=== PATIENT | female | born 1985 | race Caucasian/White ===

== ENCOUNTER 2019-06-06 06:50 | Inpatient (IN) | payer OTHER, SELFPAY ==
[2019-06-06] VITALS (59 sets, daily range): BP systolic 86–160; BP diastolic 46–88; PULSE 52–171; TEMP 36.2–37.1; O2SAT 82–100; BMI 43.1
[2019-06-06] MEDS: Lactated Ringers 1,000 ML 50 ML IV (07:50)
[2019-06-06 08:03] LABS: Absolute Lymphocyte Count 1.96 X10^3/uL (0.83-4.51); Absolute Neutrophil Count 9.6 X10^3/uL (2.0-7.7); Basophil# 0.03 X10^3/uL; Basophil% 0.2 % (0-1); Eosinophil# 0.02 X10^3/uL; Eosinophils% 0.2 % (0-5); Hematocrit 35.7 % (37-47); Hemoglobin 11.5 g/dL (12.0-15.0); Lymphocyte # 1.96 X10^3/ul (4.0); Lymphocyte % 15.5 % (19-41); Mean Corp Hgb Conc 32.2 g/dL (32-36); Mean Corpuscular Hgb 29.7 pg (27.0-32.0); Mean Corpuscular Volume 92.2 fL (81-99); Mean Platelet Vol. 10.6 fl (6.2-12.0); Monocyte# 1.02 X10^3/uL; Monocyte% 8.1 % (0-10); NRBC Flagged by Analyzer 0 % (0-5); Neutrophil # 9.56 X10^3/uL (2.7-7.7); Neutrophil % 75.4 % (47-70); Platelet Count 311 K/mm3 (150-450); RBC Distribution Width CV 15.1 % (11.6-14.6); RBC Distribution Width SD 50.6 fl (35.1-43.9); Red Blood Count 3.87 M/mm3 (4.2-5.4); White Blood Count 12.7 K/mm3 (4.4-11.0)
[2019-06-06] MEDS: Oxytocin 30 units/NS 500 ml 30 UNITS/500 ML IV.SOLN IV (08:55)
--- NOTE | 2019-06-06 09:10 | PCM.PN.BLA ---
Progress Note Patient is a at 40.4 weeks gestation for induction of labor. Patient resting well with in the room. / /-2. A.R.O.M by Dr. Newman after discussion with patient and consent given. IUPC placed to have accurate reading of contractions. Pitocin started. Category 1 tracing. No contractions noted. A/P Continue IV pitocin and titrate as needed PCN 3 million units every 4 hours until delivery Continue to monitor closely Epidural when patient desires Anticipate A+ Rubella -Immune HB- GBS+- 1st dose of IV PCN given at 0945 STROKE Vital Signs/Narrative: Vital Signs Temp Pulse BP 06/06/19 08:59 81 126/75 H 06/06/19 08:58 98.4 F
[2019-06-06] MEDS: Lactated Ringers 500 ML 999 ML IV ×2 (11:50→13:54)
[2019-06-06] MEDS: fentaNYL-bupivacaine (epidural) 100 ML BAG EPIDURAL ×3 (12:25→21:47)
[2019-06-06] MEDS: Mag Hydrox/Al Hydrox/Simeth 30 ML UDC PO ×2 (13:17→18:09)
[2019-06-06] MEDS: Amnioinfusion- 0.9% NS 1,000 ML IV.SOLN. INTRA-UTER (14:42)
[2019-06-06] MEDS: Lactated Ringers 1,000 ML 200 ML IV (17:38)
--- NOTE | 2019-06-06 18:12 | PCM.PN.BLA ---
Progress Note Patient resting comfortably with epidural. No pain at this time. Pitocin restarted at 2mu/min after being turned off for minimal variability and variables. FHT category 1 at this time. Contractions are occasional. Assessed patient at bedside. CE completed and was /-2. Moderate amount of bloody show. Will continue to increase IV pitocin as long as tolerating. Discussed plan of care and Dr. Newman agrees. STROKE Vital Signs/Narrative: Vital Signs Temp Pulse BP 06/06/19 17:10 109 H 109/69 06/06/19 17:09 98.2 F 06/06/19 16:01 120 H 118/71 06/06/19 15:59 97.9 F 06/06/19 14:56 97.5 F L 83 137/58 H
--- NOTE | 2019-06-06 21:30 | HP.PCM_ITS ---
History Date of Admission: 06/06/19 Final MIKO: 06/02/19 Final MIKO Source: US <20 weeks Gestational age: 40 Weeks and 4 Days History of this : This is a 34 year-old, avid 2 para 1 at 40-4/7 weeks gestation presents for induction of labor due to maternal discomfort and BMI greater than 40. Eyes any vaginal bleeding or leaking of fluid. She is had good movement. has been uncomplicated to date. Annie was complicated by an abnormal 1 hour GTT but her 3-hour test was normal. Has had antepartum anemia and she is group B strep positive. Allergies No Known Allergies Allergy (Verified 06/06/19 07:34) Home Medications: Home Medications Ferrous Sulfate [Iron] 325 mg PO DAILY 06/06/19 Vits [Prenatabs FA ] 1 tab PO DAILY 06/06/19 Smoking Status: Never smoker Alcohol: None Number of Fetus(es): 1 NST - FHR Rate Baby A Baseline: normal Variability:: Moderate Accelerations:: 15 x 15 Decelerations:: None NST Reactive:: Appropriate for gestational age FHR Category:: Category I Uterine Activity:: no regular ctxs History Past Pregnancies: Past Pregnancies Delivery Date Name GA/ Weeks Outcome Route Wt Infant Sex Labor Length Anesthesia Delivery Location Provider FOB Expected Delivery Method: Spontaneous Vaginal Review of Systems Constitutional: Denies: Chills, Fever Eyes: Denies: Blurred vision Cardiovascular: Denies: Chest Pain Respiratory: Denies: Cough Neurological: Denies: Blurred vision, Change in Speech, Slurred speech, Confusion Hematologic/ Lymphatic: Denies: Anemia Physical Exam Vitals: Vital Signs Temp Pulse BP Pulse Ox 98.4 F 84 124/71 H 100 06/06/19 21:00 06/06/19 21:00 06/06/19 21:00 06/06/19 21:00 General: Alert, Cooperative, No apparent distress Cardiovascular: Regular Rhythm Lungs: Normal air movement Abdomen: Soft, Non Tender, Non-Distended, Gravid Extremities:: No edema Neurological: Cranial nerves II-XII grossly intact, Deep Tendon Reflexes 2+/4 and Symmetrical INVENTORY COORDINATOR: Normal external genitalia Estimated gestational size: Appropriate for gestational size Presentation: Cephalic Cervix Dilation (cm): 2 Station: -3 Effacement (%): 60 Assessment/Plan This is a 34 year-old, 2 para 1 at 40-4/7 weeks gestation for induction of labor. Risk benefits and alternatives to induction been discussed with patient, questions were answered to her satisfaction and consent was signed. We will proceed with Pitocin and artificial rupture membranes for induction of labor. Group B strep prophylaxis is initiated. May have nitrous oxide, IV meds or epidural as needed for pain control. Estimated weight is less than 4500 g clinically and pelvis is clinically adequate to expect vaginal delivery.
[2019-06-06] MEDS: Oxytocin 30 units/NS 500 ml 30 UNITS/500 ML IV.SOLN 334 UNITS IV (22:05)
--- NOTE | 2019-06-06 22:36 | PCM.OPRPT ---
Vaginal Delivery Maternal Presentation: Medically Indicated Induction Method of Induction: Pitocin, Amniotomy Medical Reason for Induction: - - BMI >40 Amniotic Membrane Rupture Type: Artificial Amniotic Fluid Description: Clear Final MIKO: 06/02/19 Final MIKO Source: US <20 weeks Gestational age: 40 Weeks and 4 Days Date of Procedure: 06/06/19 Pre-Operative Diagnosis: Term gestation Post-Operative Diagnosis: Same, live female infant Surgery/ Procedure Performed: Spontaneous Vaginal Delivery Type of Anesthesia: Epidural, Local with 1% lidocaine - 20cc Description of Procedure: Patient completely dilated and began pushing well with contractions. of live female over intact perinium. Head delivered without difficulty. Nuchal cord X1 easily reduced. Delivery of anterior shoulder with gentle downward traction followed by rest of infant body. vigorous and placed on maternal abdomen skin to skin. Delayed cord clamping and FOB cut cord. Placenta was spontaneously delivered without difficulty and intact. First-degree laceration repaired with 3-O rapide. Vaginal sweep performed by myself. Dr. Newman present for delivery. Presentation: Vertex, DYANA Placental Delivery Description: Spontaneous Placenta Disposition: [facility] Cord Vessel Description: 3 Vessels Cord Entanglement: Around neck x 1, loose - Around body Infant A gender: Female (1 minute): 8 (5 minute): 9 Episiotomy Description: None Laceration: 1st degree Medications given after delivery: IV Pitocin
[2019-06-07] VITALS (21 sets, daily range): BP systolic 113–129; BP diastolic 61–76; PULSE 71–156; RESP 16–18; TEMP 36.3–37.2; O2SAT 82–99
--- NOTE | 2019-06-07 02:28 | NURSING ---
bedside report received from chart RN. this rn to assume care of pt at this time.
[2019-06-07] MEDS: Ibuprofen 600 MG Tablet PO ×3 (04:44→19:20)
--- NOTE | 2019-06-07 06:42 | PCM.PN.OB ---
Subjective: Patient seen at bedside. Reports feeling well. Pain controlled with Motrin PO. without difficulty. Voiding and passing flatus. Ordering breakfast tray. - Physical Exam Vitals/I&O's: Vital Signs Temp Pulse Resp BP Pulse Ox 98.9 F 75 16 118/64 96 06/07/19 04:48 06/07/19 04:48 06/07/19 04:48 06/07/19 04:48 06/07/19 00:31 Oxygen Delivery Method Room Air Weight: 292 lb Body Mass Index (BMI) 43.1 Intake and Output for Last 24 Hours 06/05/19 06/06/19 06/07/19 23:59 23:59 23:59 Intake Total 4757.97 / 4757.97 333 / 333 Output Total 500 / 500 1250 / 1250 Balance 4257.97 / 4257.97 -917 / -917 General: Alert, No apparent distress Lungs: Normal air movement Abdomen: Soft, Passing Flatus Laboratory Results 06/06/19 07:50: WBC 12.7 H, RBC 3.87 L, Hgb 11.5 L, Hct 35.7 L, MCV 92.2, MCH 29.7, MCHC 32.2, RDW Std Deviation 50.6 H, RDW Coeff of Laura 15.1 H, Plt Count 311, MPV 10.6, Immature Gran % (Auto) 0.600, Neut % (Auto) 75.4 H, Lymph % (Auto) 15.5 L, [place] % (Auto) 8.1, Eos % (Auto) 0.2, Baso % (Auto) 0.2, Absolute Neuts (auto) 9.6 H, Absolute Lymphs (auto) 1.96, Nucleated RBC % 0 06/06/19 07:50: Blood Type A POSITIVE, Antibody Screen NEGATIVE Current Medications Acetaminophen (Tylenol) 1,000 mg PO Q8H PRN PRN PRN Reason: Pain Score 1-3/10 Bisacodyl (Dulcolax) 10 mg RECTAL UD PRN PRN Reason: If no BM Dibucaine (Dibucaine) 1 applic TOPICAL TID PRN PRN; Protocol PRN Reason: Discomfort Hydrocortisone (Hytone) 1 applic TOPICAL TID PRN PRN; Protocol PRN Reason: Discomfort Ibuprofen (Motrin) 600 mg PO Q6H PRN PRN PRN Reason: Pain Score 1-05/30 Last Admin: 06/07/19 04:44 Dose: 600 mg Documented by: Methylergonovine Maleate (Methergine) 0.2 mg IM X1 PRN PRN Reason: Excess bleeding/uterine atony Ondansetron HCl (Zofran) 4 mg IV Q4H PRN PRN PRN Reason: Nausea Senna/Docusate Sodium (Senokot-S, Mary-Colace) 1 - 2 tablet PO DAILY PRN PRN PRN Reason: Constipation Simethicone (Mylicon) 80 mg PO PCHS PRN PRN Reason: Indigestion/Stomach pain Sodium Chloride () 5 - 15 ml IV UD PRN PRN Reason: SALINE FLUSH Medical Necessity - Tobacco Use Smoking Status: Never smoker Assessment/Plan PP Day 1 Routine care Pain management
[2019-06-07] MEDS: Acetaminophen 500 MG Tablet 1000 MG PO ×2 (07:21→16:21)
[2019-06-08] MEDS: Acetaminophen 500 MG Tablet 1000 MG PO (00:45)
[2019-06-08 01:13] VITALS: TEMP 36.5
[2019-06-08 01:14] VITALS: BP 123/83; PULSE 68
[2019-06-08 01:20] VITALS: BP 123/83; PULSE 68; RESP 18; TEMP 36.5
[2019-06-08] MEDS: Ibuprofen 600 MG Tablet PO ×2 (02:35→08:52)
[2019-06-08 07:43] VITALS: TEMP 36.7
[2019-06-08 07:44] VITALS: BP 115/62; PULSE 78; RESP 16; TEMP 36.7; O2SAT 99
--- NOTE | 2019-06-08 08:20 | DCINST_ITS ---
Discharge Diet: No Restrictions Discharge Activity: Return to Normal Activity, May not drive while taking narcotic pain medications., May Shower May resume sexual activity in: 4-6 weeks Additional Activity Instructions:: Nothing in the vagina for 4-6 weeks. You may return to work/school in 6 weeks. Call your doctor if your incision/area has: Continuous Slow Oozing, Sudden Increased Bleeding, Increased Pain/ Swelling, Increased Redness, Foul Smelling Discharge Additional Instructions: If you experience any of the following, contact your healthcare provider. * Bleeding that soaks a pad every hour for 2 hours * Fever 100.4 or higher * Unrelieved incision or abdominal pain * Swelling, redness, discharge or bleeding from your incision or episiotomy site * Your incision begins to separate * Problems urinating (including inability to urinate or burning while urinating). * Visual changes * Severe headache * Flu-like symptoms * Pain or redness in one of both of your breasts * Pain, warmth, tenderness or swelling in your legs, especially the calf area * Frequent nausea and vomiting * Symptoms of depression or anxiety If you experience any of the following, call 911 or go to the nearest Emergency Room. * Chest pain * Problems breathing * Seizure activity * Partial or complete paralysis of a body part, slurred speech, weakness or drooping of the face, or a sudden inability to walk or hold your balance Allergies/Adverse Reactions: Allergies No Known Allergies Allergy (Verified 06/06/19 07:34) Medications to take at Discharge Ferrous Sulfate [Iron] 325 mg PO DAILY 06/06/19 Vits [Prenatabs FA ] 1 tab PO DAILY 06/06/19 Please Follow Up With: Leidy Newman MD - [phone] When: Call to make an appointment with your doctor in 6 weeks. If you had elevated Blood Pressure or 4th degree laceration you will need to be seen in 2 weeks. Primary Care Physician: Valeria Pierre MD [Primary Care Provider] - Test Results: Test results from this visit will be discussed in further detail at your follow- up appointment, if applicable.
--- NOTE | 2019-06-08 08:21 | PCM.PN.OB ---
Subjective: pain well controlled, average lochia, no c/o - Physical Exam Vitals/I&O's: Vital Signs Temp Pulse Resp BP Pulse Ox 98.0 F 78 16 115/62 99 06/08/19 07:44 06/08/19 07:44 06/08/19 07:44 06/08/19 07:44 06/08/19 07:44 Oxygen Delivery Method Room Air Weight: 132.449 kg Body Mass Index (BMI) 43.1 Intake and Output for Last 24 Hours 06/06/19 06/07/19 06/08/19 23:59 23:59 23:59 Intake Total 4757.97 / 4757.97 333 / 333 Output Total 500 / 500 1250 / 1250 Balance 4257.97 / 4257.97 -917 / -917 General: Alert, Cooperative, No apparent distress Current Medications Acetaminophen (Tylenol) 1,000 mg PO Q8H PRN PRN PRN Reason: Pain Score 1-3/10 Last Admin: 06/08/19 00:45 Dose: 1,000 mg Documented by: Bisacodyl (Dulcolax) 10 mg RECTAL UD PRN PRN Reason: If no BM Dibucaine (Dibucaine) 1 applic TOPICAL TID PRN PRN; Protocol PRN Reason: Discomfort Hydrocortisone (Hytone) 1 applic TOPICAL TID PRN PRN; Protocol PRN Reason: Discomfort Ibuprofen (Motrin) 600 mg PO Q6H PRN PRN PRN Reason: Pain Score 1-3/10 Last Admin: 06/08/19 02:35 Dose: 600 mg Documented by: Methylergonovine Maleate (Methergine) 0.2 mg IM X1 PRN PRN Reason: Excess bleeding/uterine atony Ondansetron HCl (Zofran) 4 mg IV Q4H PRN PRN PRN Reason: Nausea Senna/Docusate Sodium (Senokot-S, Mary-Colace) 1 - 2 tablet PO DAILY PRN PRN PRN Reason: Constipation Simethicone (Mylicon) 80 mg PO PCHS PRN PRN Reason: Indigestion/Stomach pain Last Admin: 06/07/19 09:35 Dose: 80 mg Documented by: Sodium Chloride () 5 - 15 ml IV UD PRN PRN Reason: SALINE FLUSH Medical Necessity - Tobacco Use Smoking Status: Never smoker Assessment/Plan PPD#2 s/p doing well and doing well d/c home
== END 2019-06-08 09:10 | disposition home or self-care (01) | DRG 807 ==
PROVIDERS: Admitting Provider Obstetrics & Gynecology; PCP Family Medicine; Referring Provider Obstetrics & Gynecology; Visit Provider Obstetrics & Gynecology
DX: O26.893 Other specified pregnancy related conditions, third trimester (principal); Z37.0 Single live birth; O69.81X0 Labor and delivery complicated by cord around neck, without compression, not applicable or unspecified; O69.82X0 Labor and delivery complicated by other cord entanglement, without compression, not applicable or unspecified; O70.0 First degree perineal laceration during delivery; O99.02 Anemia complicating childbirth; D64.9 Anemia, unspecified; O99.824 Streptococcus B carrier state complicating childbirth; Z3A.40 40 weeks gestation of pregnancy
CPT/HCPCS: 59025; 59050; 85025; 86850; 86900; 86901; 99218; J7030; J7120; G0378

== ENCOUNTER 2022-01-06 16:45 | Outpatient (CLI) | payer OTHER, SELFPAY ==
[2022-01-06 13:42] VITALS: BP 124/87; PULSE 109
[2022-01-06 13:43] VITALS: PULSE 106; TEMP 37.3; O2SAT 97
--- NOTE | 2022-01-06 18:27 | NURSING ---
Late entry due to patient care: Patient was sent in from office for decreased movement. Patient was to be induced, but due to staffing ratios, we did continuous monitoring. During that time, NST was reactive. Patient desired to go home. Dr. Newman agreeable. She has follow-up appointment scheduled for tomorrow. A kick count sheet was given to patient. Patient encouraged to call OB and come to hospital for SROM, decreased movement, vaginal bleeding or regular contractions. Patient verbalized understanding. Patient scheduled for induction on 01/08/22 at 7am.
--- NOTE | 2022-01-10 13:02 | OB.TRI.NOTE ---
HPI - General General Date of Admission: 01/06/22 Date of Service: 01/06/22 Chief Complaint: 40 weeks HPI Narrative TUAN SCHROEDER, is a 36 F who preseted from office for decreased movement w/ a decel. Maternal Data Information MIKO Calculator Estimated Delivery Date Method Current WG Current Estimate 01/06/22 Manual 40w 4d PFSH PFSH Medical History (Updated 01/08/22 @ 08:[address] Jessie Meyer MD) Family history of hearing loss at age younger than 7 years Home Medications vits,calcium no.78-iron fumarate-folic acid 29 mg-1 mg tablet 1 tab PO DAILY 06/06/19 [History Last Taken 1 Day Ago ~01/06/22] Allergy/AdvReac Type Severity Reaction Status Date / Time No Known Allergies Allergy Verified 01/07/22 18:59 Family History (Updated 01/07/22 @ 22:20 by Justine Lubin) Mother Hypertension Father Diabetes Surgical History (Updated 01/07/22 @ 22:20 by Justine Lubin) H/O breast biopsy Hx of tonsillectomy Social History Smoking Status: Never smoker History Elective abortions Hx Para 2 Spontaneous abortions Hx # Term Pregnancies Ectopic pregnancies Hx # Pregnancies Multiple births # of living children NST FHR Rate Baby A Baseline: 130 Variability:: Moderate Accelerations:: 15 x 15 Decelerations:: Variable (but category 1 20 min before d/c) NST Reactive:: Yes FHR Category:: Category I Uterine Activity:: irreg ctxs Assessment & Plan (1) 40 weeks gestation of : PLAN: Plan 36 YOF here for induction. However, after prolonged monitoring FHTs are reassuring. Acuity of unit has prohibited us from starting induction. Patient feels good FM. D/c home and schedule induction in 24-48 hrs w/ follow up in office tomorrow for NST. Patient is comfortable w/ plan
== END 2022-01-06 23:59 | disposition home or self-care (01) ==
PROVIDERS: PCP Nurse Practitioner Family; Referring Provider Advanced Practice Midwife; Visit Provider Advanced Practice Midwife
DX: O36.8130 Decreased fetal movements, third trimester, not applicable or unspecified (principal); O36.8330 Maternal care for abnormalities of the fetal heart rate or rhythm, third trimester, not applicable or unspecified; Z3A.40 40 weeks gestation of pregnancy
CPT/HCPCS: 59025; 59050

== ENCOUNTER 2022-01-07 17:30 | Inpatient (IN) | payer OTHER, SELFPAY ==
[2022-01-07] VITALS (24 sets, daily range): BP systolic 115–150; BP diastolic 58–94; PULSE 81–97; TEMP 37.3–37.8; O2SAT 81–100; BMI 42.6
--- NOTE | 2022-01-07 17:43 | HP.PCM.OB_ITS ---
HPI - General General Date of Admission: 01/07/22 HPI Narrative TUAN SCHROEDER, is a 36 F at 40.1 weeks gestation who presents in spontaneous, active labor. complicated by obesity. She was scheduled for an induction of labor tomorrow. Maternal Data Information MIKO Calculator Estimated Delivery Date Method Current WG Current Estimate 01/06/22 Manual 40w 1d PFSH PFSH Home Medications ferrous sulfate 325 mg (65 mg iron) tablet 325 mg PO DAILY anemia 06/06/19 [History Last Taken 06/04/19 21:00] vits,calcium no.78-iron fumarate-folic acid 29 mg-1 mg tablet 1 tab PO DAILY 06/06/19 [History Last Taken 06/06/19 05:00] Allergy/AdvReac Type Severity Reaction Status Date / Time No Known Allergies Allergy Verified 06/06/19 07:34 Social History Smoking Status: Never smoker History Elective abortions Hx Para 1 Spontaneous abortions Hx # Term Pregnancies Ectopic pregnancies Hx # Pregnancies Multiple births # of living children Visit Details OB Flowsheet Initial Weight: Not Recorded Date -?-?-?-?-?-?-?-?-?-?-?-?- EGA Weight BP Urine Prot -?-?-?-?-?-?-?-?-?-?-?-?- Glucose FHR FuHt Pres Dilation -?-?-?-?-?-?-?-?-?-?-?-?- Effaced St Visit Note 01/07/22 -?-?-?-?-?-?-?-?-?-?-?-?- 40w 1d 288 lb 9.361 oz 150/94 -?-?-?-?-?-?-?-?-?-?-?-?- -?-?-?-?-?-?-?-?-?-?-?-?- ROS Eyes Eyes: Denies blurry vision, change in vision or spots in vision ENT HEENT: Denies dizziness or headache(s) Cardiovascular Cardiovascular: Denies abdominal pain, chest pain or dyspnea Respiratory/Chest Respiratory/Chest: Denies cough, dyspnea, shortness of breath at rest or shortness of breath with exertion Gastrointestinal Gastrointestinal: Denies abdominal pain, diarrhea or vomiting Genitourinary Genitourinary: Denies change in urinary stream, difficulty urinating or dysuria Musculoskeletal Musculoskeletal: Reports none Integumentary Integumentary: Denies rash Neurologic Neurologic: Denies dizziness, headache(s), memory loss or weakness Psychiatric Psychiatric: Reports none Vital Signs Vital Signs Vital Signs: 01/07/22 17:28 01/07/22 17:28 01/07/22 17:29 Temperature 100.0 F H Temperature Source Pulse Rate 95 Blood Pressure 150/94 H BP Systolic 150 BP Diastolic 94 Pulse Ox 01/07/22 17:27 01/07/22 17:27 01/07/22 17:38 Temperature 100.0 F H Temperature Source Temporal Pulse Rate 96 Blood Pressure BP Systolic BP Diastolic Pulse Ox 01/07/22 17:38 Temperature Temperature Source Pulse Rate Blood Pressure BP Systolic BP Diastolic Pulse Ox 100 Weight Weight: 288 lb 9.361 oz Body Mass Index (BMI) 42.6 Physical Exam Const alert, oriented x3 and no apparent distress General Appearance: cooperative Orientation / Consciousness: awake Exam Limitations: no limitations HEENT normocephalic Head and Scalp: normal to inspection Eyes General Eye: normal appearance of both eyes Neck full ROM and no lymphadenopathy Lymph Lymphatic: no lymphadenopathy noted Chest inspection of chest normal Resp normal respiratory effort, normal air movement and clear to auscultation bilaterally Effort and Inspection: able to speak in complete sentences and symmetric chest movement Cardio regular rate and regular rhythm GI normal to inspection, nondistended, normoactive bowel sounds Manual OB Exam: presentation cephalic Back/Spine normal ROM Extremity full ROM and no calf tenderness Skin no rashes or lesions noted General Skin Exam: no breakdown Neuro oriented x3 and CN's II-XII intact bilaterally Psych mental status grossly normal and thought process normal Labs Labs Labs: Blood Type A POSITIVE Antibody Screen NEGATIVE Hct 35.7 % (37-47) L Hgb 11.5 g/dL (12.0-15.0) L Rhogam given: No Assessment & Plan (1) Obesity affecting in third trimester, antepartum: (2) 40 weeks gestation of : (3) Spontaneous onset of labor: PLAN: Plan CE- 8cm with bulging bag of membranes Admit to labor and delivery Routine labs Nitrous oxide if desires GBS negative Patient requesting physician for delivery- Dr. Ramirez notified and will be in route
[2022-01-07] MEDS: LACTATED RINGERS 500 ML 999 ML IV (17:50)
[2022-01-07 18:04] LABS: Absolute Lymphocyte Count 2.46 X10^3/uL (0.83-4.51); Absolute Neutrophil Count 11.9 X10^3/uL (2.0-7.7); Basophil# 0.05 X10^3/uL; Basophil% 0.3 % (0-1); Eosinophil# 0.66 X10^3/uL; Hematocrit 36.6 % (37-47); Hemoglobin 12.1 g/dL (12.0-15.0); Lymphocyte # 2.46 X10^3/ul (0.83-4.51); Mean Corp Hgb Conc 33.1 g/dL (32-36); Mean Corpuscular Hgb 30.9 pg (27.0-32.0); Mean Corpuscular Volume 93.6 fL (81-99); Mean Platelet Vol. 9.8 fl (6.2-12.0); Monocyte# 1.21 X10^3/uL; Monocyte% 7.4 % (0-10); NRBC Flagged by Analyzer 0 % (0-5); Neutrophil # 11.87 X10^3/uL (2.7-7.7); Neutrophil % 72.4 % (47-70); Platelet Count 289 K/mm3 (150-450); RBC Distribution Width CV 13.9 % (11.6-14.6); RBC Distribution Width SD 47.1 fl (35.1-43.9); Red Blood Count 3.91 M/mm3 (4.2-5.4); White Blood Count 16.4 K/mm3 (4.4-11.0)
[2022-01-07] MEDS: Lactated Ringers 1,000 ML 200 ML IV (18:21)
[2022-01-07] MEDS: Oxytocin 15 Units/NS 250ml 15 UNITS/250 ML IV.SOLN 334 UNITS IV (19:09)
[2022-01-07] MEDS: Oxytocin 15 Units/NS 250ml 15 UNITS/250 ML IV.SOLN 83 UNITS IV (19:41)
--- NOTE | 2022-01-07 19:51 | EX.PCM.OBRPT ---
Assessment & Plan (1) Precipitous delivery: (2) Laceration, obstetrical, second degree: (3) Care and examination of lactating mother: Maternal Data Information MIKO Calculator Estimated Delivery Date Method Current WG Current Estimate 01/06/22 Manual 40w 1d Vaginal Delivery Maternal Presentation Maternal Presentation: Active Labor Maternal Presentation: @ 40.1 weeks gestation that presented in spontaneous, active labor. Operative Information Date of Procedure: 01/07/22 Pre-Operative Diagnosis: Term gestation, Spontaneous onset of labor Post-Operative Diagnosis: Same, precipitous delivery, , Live male infant Surgery / Procedure Performed: Spontaneous Vaginal Delivery Type of Anesthesia: Local with 1% Lidocaine Estimated Blood Loss: 350 Time of Delivery: 19:07 Findings Description of Procedure: Patient arrived to unit in spontaneous, active labor. Per nursing CE 8 cm with bulging bag. Patient requesting this provider to rupture membranes due to desire to deliver quickly. AROM for clear fluid and patient began to feel pressure with contractions. CE complete and +1 station. Patient pushed twice and head delivered quickly followed by anterior shoulder and remainder of infant body. Vigorous male placed on maternal abdomen and attended to by nursing staff. Cord clamped and cut by me after 3 minute delay and infant placed immediately skin to skin with patient. Pitocin IV started for active management of the third stage of labor. Placenta delivered spontaneously and intact. Uterus boggy with initial exam. Patient straight cath for 400 cc urine. Uterus firmed up and bleeding decreased. After placing local anesthesia, a second degree laceration was repaired in usual fashion using Vicryl Rapid 3-0. Hemostasis obtained. Vaginal sweep completed and 2 small clots removed. Fundus firm at U. EBL 350 cc. APGARS 9/9. Patient and bonding well at this time. Dr. Ramirez notified of delivery. Presentation: Vertex Amniotic Membrane Rupture Type: Artificial Time of Membrane Rupture: 1845 Amniotic Fluid Description: Clear Placental Delivery Description: Spontaneous Placenta Disposition: [facility] Cord Vessel Description: 3 Vessels Cord Entanglement: None Infant A Gender: Male (1 minute): 9 (5 minute): 9 Delayed Cord Clamping: Yes Post Vaginal Delivery Medications Given After Delivery: IV Pitocin Episiotomy Description: None Laceration: 2nd degree Complication Complications: None
[2022-01-07] MEDS: Acetaminophen 500 MG Tablet 1000 MG PO (22:24)
[2022-01-07] MEDS: Lidocaine 1% (20 ml mdv) 20 ML Vial INFILT (22:29)
[2022-01-08] VITALS (11 sets, daily range): BP systolic 105–122; BP diastolic 65–78; PULSE 70–98; RESP 15–18; TEMP 36.6–37.3; O2SAT 98
[2022-01-08] MEDS: Acetaminophen 500 MG Tablet 1000 MG PO ×2 (04:24→15:50)
--- NOTE | 2022-01-08 08:30 | PCM.PROGNOTE ---
Subjective Subjective patient seen at bedside, doing well. Patient reports good pain control. lochia mild. Objective Data Objective Data Vital Signs: Vital Signs Temp Pulse Resp BP Pulse Ox O2 Del Method 98.4 F 76 16 119/68 97 Room Air 01/08/22 08:18 01/08/22 08:18 01/08/22 08:18 01/08/22 08:18 01/07/22 20:24 01/08/22 08:18 Oxygen Delivery Method Room Air Weight: 130.9 kg Body Mass Index (BMI) 42.6 Intake & Output: Intake and Output for Last 24 Hours 01/06/22 01/07/22 01/08/22 23:59 23:59 23:59 Intake Total 832.57 / 832.57 250 / 250 Balance 832.57 / 832.57 250 / 250 Lab / Micro Data Result Diagrams: 01/07/22 17:50 Labs: Laboratory Results - last 24 hr 01/07/22 17:50: WBC 16.4 H, RBC 3.91 L, Hgb 12.1, Hct 36.6 L, MCV 93.6, MCH 30.9, MCHC 33.1, RDW Std Deviation 47.1 H, RDW Coeff of Laura 13.9, Plt Count 289, MPV 9.8, Immature Gran % (Auto) 0.900, Neut % (Auto) 72.4 H, Lymph % (Auto) 15.0 L, [place] % (Auto) 7.4, Eos % (Auto) 4.0, Baso % (Auto) 0.3, Absolute Neuts (auto) 11.9 H, Absolute Lymphs (auto) 2.46, Nucleated RBC % 0 01/07/22 17:50: Blood Type A POSITIVE, Antibody Screen NEGATIVE Micro: Microbiology 01/07/22 18:00 Nasal Secretion SARS-CoV-2 Antigen (Rapid) - Final Physical Exam Const alert and oriented x3 General Appearance: cooperative HEENT normocephalic Neck General: normal visual inspection GI soft to palpation and non-distended GI Narrative: Fundus firm Extremity normal to inspection and no calf tenderness Skin no rashes or lesions noted Neuro oriented x3 and CN's II-XII intact bilaterally Psych mental status grossly normal Assessment & Plan Assessment/Plan (1) Vaginal delivery: PLAN: Plan PPD#1 , Doing well Routine care pain mgmt ambulation
[2022-01-08] MEDS: 0.9% Saline Lock 10 ML Syringe IV (16:32)
[2022-01-09 01:47] VITALS: BP 107/61; PULSE 75
[2022-01-09 02:00] VITALS: BP 107/61; PULSE 75; RESP 16; TEMP 37.1
[2022-01-09 07:37] VITALS: TEMP 36.9; O2SAT 97
[2022-01-09 07:38] VITALS: BP 130/75; PULSE 84; PULSE 90; RESP 14; TEMP 36.9
--- NOTE | 2022-01-09 08:12 | DCINST_ITS ---
Discharge Instructions Diet Discharge Diet: No restrictions Activity Discharge Activity: May Drive and May Shower May resume sexual activity in: 6 weeks Ice area for (Minutes): 15 Weight Bearing Status: Weight bearing as tolerated Dressing / Incision Call your doctor if you observe: Fever of 101 or Higher, Coldness, Increased Pain, Numbness or Tingling, Change in Color, Inability to urinate, Inability to have a bowel movement, Using more than 1 pad per hour, Shortness of breath, Dizziness, Fainting spells, Swelling in the ankles, Chest pain, Increased palpitations (irregular heartbeat), Calf discomfort and Uncontrolled pain Cleanse incision/area with: Soap & Water Follow Up Care When: 6 week Test Results: Test results from this visit will be discussed in further detail at your follow- up appointment, if applicable. Discharge Plan Admission Admit Date/Time: 01/07/22 17:30 Primary Reason for Your Visit: delivery Attending Provider: Tea Anthony Primary Care Provider: Rosa Jeffrey NP Discharge Orders/Prescriptions Prescriptions: Continued vit,[id number] 1 TABLET tablet 1 tab PO DAILY Discontinued ferrous sulfate 325 MG tablet 325 mg PO DAILY Referrals / Follow Up: Rosa Jeffrey NP, [facility] NURSE[facility] [Primary Care Provider] - Disposition Disposition (needs filled in before D/C Order can be placed): Home, Self Care
--- NOTE | 2022-01-09 08:13 | PCM.PN.OB ---
Subjective Subjective pt doing well and offers no complaints today. no pain. lochia normal. no lightheadedness, dizziness, CP, SOB, leg pain, SPANGLER, vision changes. dilan reg diet without N/V. Objective Data Objective Data Vital Signs: Vital Signs Temp Pulse Resp BP Pulse Ox O2 Del Method 98.4 F 84 14 130/75 H 97 Room Air 01/09/22 07:38 01/09/22 07:38 01/09/22 07:38 01/09/22 07:38 01/09/22 07:37 01/09/22 07:38 Oxygen Delivery Method Room Air Weight: 288 lb 9.361 oz Body Mass Index (BMI) 42.6 Intake & Output: Intake and Output for Last 24 Hours 01/07/22 01/08/22 01/09/22 23:59 23:59 23:59 Intake Total 832.57 / 832.57 250 / 250 Balance 832.57 / 832.57 250 / 250 Lab / Micro Data Result Diagrams: 01/07/22 17:50 Micro: Microbiology 01/07/22 18:00 Nasal Secretion SARS-CoV-2 Antigen (Rapid) - Final Physical Exam Const alert and no apparent distress General Appearance: comfortable HEENT normocephalic GI soft to palpation, non-tender and non-distended Extremity no calf tenderness Assessment & Plan (1) Vaginal delivery: PLAN: S/p vaginal delivery. Doing well and desires discharge. Reviewed discharge instructions and follow up in office. (2) Laceration, obstetrical, second degree:
--- NOTE | 2022-01-13 13:04 | NURSING ---
Follow up call attempted per pt. request and phone call would not go through. Attempted 3x
== END 2022-01-09 08:27 | disposition home or self-care (01) | DRG 807 ==
LOC: WPOUT 17:31 → WP 17:31
PROVIDERS: Admitting Provider Advanced Practice Midwife; PCP Nurse Practitioner Family; Referring Provider Advanced Practice Midwife; Visit Provider Advanced Practice Midwife
DX: O62.3 Precipitate labor (principal); Z37.0 Single live birth; N85.8 Other specified noninflammatory disorders of uterus; O99.214 Obesity complicating childbirth; O99.892 Other specified diseases and conditions complicating childbirth; O70.1 Second degree perineal laceration during delivery; Z3A.40 40 weeks gestation of pregnancy
CPT/HCPCS: 59025; 59050; 85025; 86850; 86900; 86901; 87811; 99218; J7120; A4216; G0378